=== PATIENT | male | born 2000 | race Caucasian/White ===

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

== ENCOUNTER 2021-06-30 10:45 | Inpatient (IN) | payer MEDICAID, SELFPAY ==
[~2021-06-30] VITALS: Ht 182.9 cm; Wt 86.6 kg
[2021-06-30 11:27] VITALS: BP 141/75
--- NOTE | 2021-06-30 16:01 | NUR ---
PT AMBULATED TO BED 02
--- NOTE | 2021-06-30 16:05 | NUR ---
21 y/o Male RLQ Abdominal pain since yesterday. Pain is constant, cramping, sharp, and tender to touch. Denies N/V/D. PT states "I feel the pain in my appendix area" skin warm and dry. Allergies: NKA Med hx: none
[2021-06-30 16:10] LABS: BASOPHILS # (AUTO) 0.1 K/uL (0.00-0.22); BASOPHILS % (AUTO) 0.4 % (0.0-2.0); EOSINOPHILS % (AUTO) 0.1 % (0.0-4.0); HEMATOCRIT 46.8 % (36-52); HEMOGLOBIN 15.9 g/dL (12.0-18.0); LYMPHOCYTES # (AUTO) 1.8 K/uL (2.0-11.5); MEAN CORPUSCULAR HEMOGLOBIN 33 pg (27-31); MEAN CORPUSCULAR HGB CONC 34 g/dL (33-37); MEAN CORPUSCULAR VOLUME 96.8 fL (80-94); MONOCYTES # (AUTO) 1.3 K/uL (0.8-1.0); MONOCYTES % (AUTO) 10.6 % (1.7-9.3); NEUTROPHILS # (AUTO) 9.5 K/uL (1.8-7.7); NEUTROPHILS % (AUTO) 74.9 % (42.2-75.2); PLATELET COUNT (AUTO) 338 K/uL (140-450); RED BLOOD CELL COUNT(AUTO) 4.84 MIL/uL (4.20-6.10); WHITE BLOOD COUNT (AUTO) 12.7 K/uL (4.5-11.0)
[2021-06-30 16:25] LABS: APPEARANCE,URINE CLEAR (CLEAR); BILIRUBIN,URINE NEGATIVE (NEGATIVE); BLOOD, URINE NEGATIVE (NEGATIVE); LEUKOCYTE ESTERASE ,URINE NEGATIVE (NEGATIVE); NITRITE, URINE NEGATIVE (NEGATIVE); UGLUCOSE NEGATIVE (NEGATIVE)
[2021-06-30 16:30] LABS: ALBUMIN 4.3 g/dL (3.4-5.0); ANION GAP 11.2 (8-16); CARBON DIOXIDE 30.3 mmol/L (21-32); CREATININE 0.9 mg/dL (0.6-1.3); POTASSIUM 3.5 mmol/L (3.5-5.1); TOTAL BILIRUBIN 0.7 mg/dL (0.0-1.0)
--- NOTE | 2021-06-30 16:35 | NUR ---
PT TAKEN TO CT SCAN VIA W/C
[2021-06-30 16:51] LABS: COLOR,URINE YELLOW (YELLOW)
--- NOTE | 2021-06-30 17:03 | NUR ---
PT RETURNED FROM CT SCAN
[2021-06-30] MEDS ORDERED: metroNIDAZOLE 500 MG/NS PREMIX 100 ML IV ONE (17:20)
[2021-06-30] MEDS ORDERED: KETOROLAC 15 MG/ML VIAL IVP ONE (17:25)
[2021-06-30] MEDS ORDERED: cefTRIAXone 1,000 MG VIAL ONE (17:29)
[2021-06-30 18:18] LABS: PROTHROMBIN TIME 10.7 secs (10.8-13.4)
--- NOTE | 2021-06-30 19:20 | NUR ---
Recevied report from Brandon VALERA for continuity of care
--- NOTE | 2021-06-30 19:20 | NUR ---
Pt report given to SAI RN. Transfer of care at this time.
--- NOTE | 2021-06-30 20:05 | NUR ---
francia swabbed and collected. sent to lab received by rolo schmitz
[2021-06-30] MEDS ORDERED: MORPHINE SULFATE 2 MG/ML SYR IVP PRN (21:25)
--- NOTE | 2021-06-30 22:01 | NUR ---
Patient appears to be resting comfortably in bed. Vital Signs within normal limits. Respirations even and unlabored. Safety measures are in place, will continue to monitor patient.
[2021-06-30] MEDS: NACL 0.9% 1,000 ML IV SCH (22:09)
--- NOTE | 2021-06-30 23:54 | NUR ---
Patient will be admitted to care of Shruti MIX. Admited to Med-Surg. Will go to [id number]. Belongings list completed. Report to Ty VALERA.
--- NOTE | 2021-06-30 23:54 | NUR ---
called wesly for report-- asked to call back in 2mins.
--- NOTE | 2021-07-01 00:15 | NUR ---
PATIENT WAS RECEIVED FROM ER, ALERT AND ORIENTED X 4, GOOD HISTORIAN BUT PATIENT WAS YOUNG TO HAVE SEVERAL SYSYTEMIC PROBLEMS
--- NOTE | 2021-07-01 01:00 | NUR ---
ADMISSION WAS DONE AND FINISHED PATIENT WAS FEELING SLEEPY.
--- NOTE | 2021-07-01 02:00 | NUR ---
PATIENT WAS ASLEEP CALMLY
--- NOTE | 2021-07-01 03:00 | NUR ---
PATIENT WAS ASLEEP CALMLY
[2021-07-01 04:00] VITALS: BP 121/79
--- NOTE | 2021-07-01 04:00 | NUR ---
V/S WAS TAKEN WNL CHARTED.
[2021-07-01] MEDS: NACL 0.9% 1,000 ML IV SCH ×2 (06:41→17:19)
--- NOTE | 2021-07-01 07:35 | NUR ---
ALL REPORTS GIVEN TO INCOMING RN, TRANSFER OF CARE ENDORSED.
--- NOTE | 2021-07-01 07:37 | NUR ---
RECEIVED REPORT FROM VICE PRESIDENT QUALITY IMPROVEMENT RN. PATIENT RESTING IN BED. CALL LIGHT WITHIN REACH. ALL SAFETY MEASURES IN PLACE.
[2021-07-01] MEDS ORDERED: LIDOCAINE MPF 2% 100 MG/5 ML VIAL INJ ONE (07:58)
[2021-07-01] MEDS ORDERED: MEPERIDINE 25 MG/ML SYR ONE (07:59)
[2021-07-01] MEDS ORDERED: fentaNYL citrate 0.05 MG/ML VIAL ONE (07:59)
[2021-07-01 08:00] VITALS: BP 120/73
[2021-07-01] MEDS ORDERED: PROPOFOL 200 MG/20 ML VIAL IV ONE (08:02)
[2021-07-01] MEDS ORDERED: KETOROLAC 30 MG/ML VIAL ONE (08:02)
[2021-07-01] MEDS ORDERED: ROCURONIUM 50 MG/5 ML VIAL IV ONE (08:02)
[2021-07-01] MEDS ORDERED: SUCCINYLCHOLINE CHLORIDE 200 MG/10 ML VIAL IVP ONE (08:02)
[2021-07-01] MEDS ORDERED: METOCLOPRAMIDE 10 MG/2 ML INJ VIAL ONE (08:02)
[2021-07-01] MEDS ORDERED: GLYCOPYRROLATE 0.2 MG/ML VIAL ONE (08:02)
[2021-07-01] MEDS ORDERED: DEXAMETHASONE 4 MG/ML VIAL ONE (08:02)
[2021-07-01] MEDS ORDERED: NEOSTIGMINE 1:1000 10 MG/10 ML VIAL ONE (08:02)
[2021-07-01] MEDS ORDERED: ONDANSETRON 4 MG/2 ML VIAL ONE (08:03)
--- NOTE | 2021-07-01 08:27 | NUR ---
PATIENT HAS BEEN SCREENED AND CATEGORIZED LOW NUTRITION RISK. PATIENT WILL BE SEEN WITHIN 7 DAYS OF ADMISSION. 07/07/[address]
[2021-07-01] MEDS ORDERED: BUPIVACAINE-MPF/EPI 0.25% 30 ML VIAL INJ ONE (08:41)
[2021-07-01] MEDS ORDERED: ACETAMINOPHEN 325 MG TAB PO PRN (08:50)
[2021-07-01] MEDS ORDERED: LORazepam 2 MG/ML VIAL IM/IVP PRN (08:50)
[2021-07-01] MEDS ORDERED: MAG SULF 2000 MG/WATER PREMIX 50 ML IV PRN (08:50)
[2021-07-01] MEDS ORDERED: ZOLPIDEM 5 MG TAB PO PRN (08:50)
[2021-07-01] MEDS ORDERED: DOCUSATE SODIUM 100 MG GELCAP PO PRN (08:50)
[2021-07-01] MEDS ORDERED: ONDANSETRON 4 MG/2 ML VIAL IM/IVP PRN (08:50)
[2021-07-01] MEDS ORDERED: POTASSIUM CHLORIDE 10 MEQ TABER PO PRN (08:50)
--- NOTE | 2021-07-01 09:15 | NUR ---
DR. BURR AT PATIENT BEDSIDE DISCUSSING PROCEDURE. PATIENT VERBALIZED UNDERSTANDING. CONSENT SIGNED BY PATIENT.
--- NOTE | 2021-07-01 09:25 | NUR ---
OR NURSES ON FLOOR TO COMPLAINT SUPERVISOR PATIENT FOR PROCEDURE. PATIENT IS STABLE.
[2021-07-01 09:36] LABS: BASOPHILS % (AUTO) 0.3 % (0.0-2.0); EOSINOPHILS % (AUTO) 0.3 % (0.0-4.0); HEMATOCRIT 46.1 % (36-52); HEMOGLOBIN 15.8 g/dL (12.0-18.0); LYMPHOCYTES # (AUTO) 1.7 K/uL (2.0-11.5); LYMPHOCYTES % (AUTO) 13.7 % (20.5-51.1); MEAN CORPUSCULAR HEMOGLOBIN 33 pg (27-31); MEAN CORPUSCULAR HGB CONC 34 g/dL (33-37); MEAN CORPUSCULAR VOLUME 95.9 fL (80-94); MONOCYTES # (AUTO) 1.5 K/uL (0.8-1.0); MONOCYTES % (AUTO) 12.1 % (1.7-9.3); NEUTROPHILS # (AUTO) 9.2 K/uL (1.8-7.7); NEUTROPHILS % (AUTO) 73.6 % (42.2-75.2); PLATELET COUNT (AUTO) 267 K/uL (140-450); RED BLOOD CELL COUNT(AUTO) 4.81 MIL/uL (4.20-6.10); RED CELL DISTRIBUTION WIDTH 12.8 % (11.6-13.7); WHITE BLOOD COUNT (AUTO) 12.5 K/uL (4.5-11.0)
[2021-07-01] MEDS ORDERED: SEVOFLURANE 250 ML BTL INH ONE (09:38)
[2021-07-01 09:55] LABS: ANION GAP 14.1 (8-16); CARBON DIOXIDE 27.3 mmol/L (21-32); CREATININE 0.8 mg/dL (0.6-1.3); POTASSIUM 3.4 mmol/L (3.5-5.1)
[2021-07-01 10:10] LABS: CHOL/HDL RATIO 2.3 (1-4.5); MAGNESIUM 2.1 mg/dL (1.8-2.4); PHOSPHORUS 3.1 mg/dL (2.5-4.9); THYROID STIMULATING HORMONE 2.14 uIU/mL (0.34-3.74)
[2021-07-01] MEDS ORDERED: LACTATED RINGERS 1,000 ML IV SCH (10:35)
[2021-07-01] MEDS ORDERED: fentaNYL citrate 0.05 MG/ML VIAL IVP PRN (10:35)
[2021-07-01] MEDS ORDERED: diphenhydrAMINE 50 MG/ML VIAL IVP PRN (10:35)
[2021-07-01] MEDS ORDERED: MEPERIDINE 25 MG/ML SYR IVP PRN (10:35)
[2021-07-01] MEDS ORDERED: ONDANSETRON 4 MG/2 ML VIAL IVP PRN (10:35)
[2021-07-01] MEDS ORDERED: HYDROcodone/APAP 5/325 MG 1 TAB TAB PO PRN (10:50)
--- NOTE | 2021-07-01 11:35 | NUR ---
PATIENT HAS RETURNED BACK FROM OR. PATIENT IS STABLE. CALL LIGHT WITHIN REACH. ALL SAFETY MEASURES IN PLACE. WILL CONTINUE TO MONITOR.
[2021-07-01] MEDS: MORPHINE SULFATE 4 MG/ML SYR IVP PRN ×2 (11:53→21:34)
--- NOTE | 2021-07-01 11:55 | NUR ---
PATIENT COMPLAINED OF 9/10 PAIN. ADMINISTERED PRN PAIN MEDICATION. WILL CONTINUE TO MONITOR. ALL SAFETY MEASURES IN PLACE.
--- NOTE | 2021-07-01 13:30 | NUR ---
CHECKED ON PATIENT. PATIENT RESTING. NO S/S OF DISTRESS. CALL LIGHT WITHIN REACH. ALL SAFETY MEASURES IN PLACE.
[2021-07-01 14:26] LABS: BARBITURATE, URINE NEGATIVE ng/ml (NEG <=200); BENZODIAZEPINE, URINE NEGATIVE ng/mL (NEG <=200); CANNABINOID, URINE POSITIVE ng/mL (NEG <=50); COCAINE, URINE NEGATIVE ng/mL (NEG <=300); OPIATE, URINE NEGATIVE ng/mL (NEG <=2000); PHENCYCLIDINE SCREEN,URINE NEGATIVE ng/mL (NEG <=25)
--- NOTE | 2021-07-01 15:58 | NUR ---
PT COMPLAINS OF PAIN ON THE SURGICAL AREA ABDOMEN CHECK VITAL SIGNS BP 125/75 DE 96 PT TOLERATED WELL
[2021-07-01 16:00] VITALS: BP 125/75
--- NOTE | 2021-07-01 18:15 | NUR ---
CHECKED ON PATIENT. PATIENT IS RESTING IN BED. CALL LIGHT WITHIN REACH. ALL SAFETY MEASURES IN PLACE.
--- NOTE | 2021-07-01 19:15 | NUR ---
ENDORSED PATIENT TO CONFIGURATION MANAGER RN FOR CONTINUITY OF CARE. PATIENT STABLE. ALL SAFETY MEASURES IN PLACE.
--- NOTE | 2021-07-01 19:20 | NUR ---
RECEIVED BEDSIDE REPORT FROM DAY SHIFT NURSE. PATIENT IS AWAKE, ALERT, AND COOPERATIVE. RESPIRATION EVEN UNLABORED ON ROOM AIR. NO DISTRESS NOTED. SKIN IS WARM AND DRY. S/P LAP APPY TODAY WITH 4 SURGICAL INCISION WITH BANDAGE. DENIES PAIN. PLAN OF CARE WAS DISCUSSED. ALL SAFETY MEASURES IN PLACE. BED IS AT LOW POSITION. CALL LIGHT WITHIN REACH. WILL CONTINUE TO MONITOR.
[2021-07-01 20:00] VITALS: BP 132/73
--- NOTE | 2021-07-01 20:30 | NUR ---
INITIAL ASSESSMENT DONE. VITALS WERE TAKEN.
--- NOTE | 2021-07-01 21:34 | NUR ---
PATIENT COMPLAINED OF INCISIONAL PAIN FROM THE ABD 8/10. PRN PAIN MEDS GIVEN PER ORDER. WILL CONTINUE TO MONITOR
--- NOTE | 2021-07-02 00:44 | NUR ---
MADE ROUNDS PATIENT TALKING ON THE PHONE, NO DISTRESS NOTED. WILL CONTINUE TO MONITOR
--- NOTE | 2021-07-02 02:29 | NUR ---
MADE ROUNDS, PATIENT STILL AWAKE, WATCHING TV WITH NO DISTRESS NOTED
[2021-07-02] MEDS: NACL 0.9% 1,000 ML IV SCH (03:52)
--- NOTE | 2021-07-02 03:53 | NUR ---
MANUALLY SCANNED PATIENT IV FLUID NS, SCANNER IS NOT WORKING, VERIFIED WITH ANOTHER NURSE THE IV FLUID ADMINISTRATION.
[2021-07-02 04:00] VITALS: BP 141/84
--- NOTE | 2021-07-02 05:10 | NUR ---
VITALS WERE TAKEN.
[2021-07-02 05:53] LABS: BASOPHILS % (AUTO) 0.3 % (0.0-2.0); EOSINOPHILS % (AUTO) 0.3 % (0.0-4.0); HEMATOCRIT 38.7 % (36-52); HEMOGLOBIN 13.4 g/dL (12.0-18.0); LYMPHOCYTES # (AUTO) 2.5 K/uL (2.0-11.5); LYMPHOCYTES % (AUTO) 21.1 % (20.5-51.1); MEAN CORPUSCULAR HEMOGLOBIN 33 pg (27-31); MEAN CORPUSCULAR HGB CONC 35 g/dL (33-37); MEAN CORPUSCULAR VOLUME 95.8 fL (80-94); MONOCYTES # (AUTO) 1.2 K/uL (0.8-1.0); MONOCYTES % (AUTO) 9.9 % (1.7-9.3); NEUTROPHILS % (AUTO) 68.4 % (42.2-75.2); PLATELET COUNT (AUTO) 256 K/uL (140-450); RED BLOOD CELL COUNT(AUTO) 4.05 MIL/uL (4.20-6.10); RED CELL DISTRIBUTION WIDTH 13.2 % (11.6-13.7); WHITE BLOOD COUNT (AUTO) 11.7 K/uL (4.5-11.0)
--- NOTE | 2021-07-02 06:19 | NUR ---
PATIENT IV INFILTRATED, INSERTED NEW ONE AT RIGHT FOREARM 24G. PATIENT TOLERATED IT WELL
[2021-07-02 06:21] LABS: ANION GAP 11.8 (8-16); CARBON DIOXIDE 27.8 mmol/L (21-32); CREATININE 0.7 mg/dL (0.6-1.3); POTASSIUM 3.6 mmol/L (3.5-5.1)
[2021-07-02 06:22] LABS: MAGNESIUM 1.8 mg/dL (1.8-2.4); PHOSPHORUS 3.7 mg/dL (2.5-4.9)
--- NOTE | 2021-07-02 07:14 | NUR ---
ENDORSED PATIENT TO DAY SHIFT NURSE FOR CONTINUITY OF CARE
--- NOTE | 2021-07-02 07:18 | NUR ---
RECEIVED REPORT FROM NIGHT NURSE PATIENT IS AAOX4, ON ROOM AIR, AMBULATORY, SKIN NON INTACT WITH S/P LAP APPY ON 07/01/21 DR BURR 1ITH 3 INCISIONS ON THE LEFT SIDE, IV INTACT ON THE RIGHT FA RUNNING NS AT 100 MLS/HR. SAFETY MEASURES IN PLACE AND CALL LIGHT WITHIN REACH. WILL CONTINUE TO MONITOR.
[2021-07-02 08:00] VITALS: BP 121/78
[2021-07-02 08:07] LABS: T4 (THYROXINE) 7.1 ug/dL (4.5-12.0)
--- NOTE | 2021-07-02 10:00 | NUR ---
ADMINISTERED SCHEDULED MEDICATION CEFTRIAXONE 1000 MG AT 100 MLS/HR INFUSING WELL.
[2021-07-02] MEDS ORDERED: CEPH250C16 PO (10:15)
[2021-07-02] MEDS ORDERED: IBUP-1842 PO (10:15)
[2021-07-02] MEDS: MORPHINE SULFATE 4 MG/ML SYR IVP PRN (12:19)
--- NOTE | 2021-07-02 12:19 | NUR ---
PT COMPLAINS OF INCISIONAL PAIN ON THE ABDOMEN 07/01 CHECK VITAL SIGNS BP 130/80 MA 80. PT RESTING.
--- NOTE | 2021-07-02 13:25 | NUR ---
DISCHARGED INSTRUCTIONS GIVEN TO PATIENT AT BEDSIDE AND ENCOURAGED TO CONTINUE MEDICATION AND INSTRUCTED TO AVOID HEAVY LIFTING AND TO FOLLOW UP WITH PCP AND DR BURR, SET UP AN APPOINTMENT WITH THE SURGEON. INSTRUCTED TO SEEK MEDICAL HELP IN CASE OF EMERGENCIES. REMOVED IV INTACT AND COMPLETE, REMOVED ID BANDS, PATIENT CHANGED TO HIS OWN CLOTHES AND TOOK ALL HIS BELONGINGS, ESCORTED TO [id number], PT IS GOING HOME ACCOMPANIED BY PARTNER. PT IS STABLE.
--- NOTE | 2021-07-05 19:40 | NUR ---
LATE ENTRY- ROCEPHIN IVPB DISCONTINUED AT 1820
== END 2021-07-02 13:25 | disposition home or self-care (01) | DRG 710 ==
LOC: MED 10:45 → MTU 21:35 → MMU 07-01 00:03
PROC: 0DTJ4ZZ Resection of Appendix, Percutaneous Endoscopic Approach (ICD-10-PCS; principal; 2021-07-01 08:45)
DX: A41.9 Sepsis, unspecified organism (principal); K35.80 Unspecified acute appendicitis; Z20.822 Contact with and (suspected) exposure to COVID-19; E86.0 Dehydration; K64.4 Residual hemorrhoidal skin tags; E78.5 Hyperlipidemia, unspecified; E87.6 Hypokalemia; Z83.3 Family history of diabetes mellitus; Z90.5 Acquired absence of kidney
CPT/HCPCS: 36415; 80048; 80053; 80305; 81003; 82150; 82374; 83036; 83605; 83690; 83735; 83880; 84100; 84134; 84436; 84443; 85025; 85610; 85730; 86886; 86900; 86901; 87040; 87081; 88304; 96365; 96367; 96375; 99285; J0330; J0696; J1100; J1885; J2001; J2175; J2270; J2405; J2704; J2710; J2765; J3010; J3490; J7030; J7060; J7120; Q9967

== ENCOUNTER 2021-10-09 11:59 | Emergency (ER) | payer MEDICAID, SELFPAY ==
[~2021-10-09] VITALS: Ht 182.9 cm; Wt 87.5 kg
[~2021-10-09 11:59] MED LIST: CEPH250C16 PO; IBUP-1842 PO
[2021-10-09 12:06] VITALS: BP 141/63
[2021-10-09] MEDS ORDERED: FLUORESCEIN OPTH STRIP 1 MG OP ONE (12:35)
[2021-10-09] MEDS ORDERED: POLY10SO OP (13:03)
[2021-10-09 13:28] VITALS: BP 141/63
--- NOTE | 2021-10-09 13:29 | NUR ---
Patient discharged with v/s stable. Written and verbal after care instructions given BLEPHARITIS and explained. Patient alert, oriented and verbalized understanding of instructions. Ambulatory with steady gait. All questions addressed prior to discharge. ID band removed. Patient advised to follow up with PMD. Rx of POLYTRIM EYE DROPS given. Patient educated on indication of medication including possible reaction and side effects. Opportunity to ask questions provided and answered.
== END 2021-10-09 13:29 | disposition home or self-care (01) ==
LOC: MED 11:59
DX: H01.001 Unspecified blepharitis right upper eyelid (principal); Z79.899 Other long term (current) drug therapy
CPT/HCPCS: 99283

== ENCOUNTER 2021-12-03 17:20 | Emergency (ER) | payer MEDICAID ==
[~2021-12-03] VITALS: Ht 182.9 cm; Wt 89.8 kg
[~2021-12-03 17:20] MED LIST changes: +POLY10SO OP
[2021-12-03 17:56] VITALS: BP 122/46
[2021-12-03 18:52] VITALS: BP 122/46
--- NOTE | 2021-12-03 18:52 | NUR ---
PATIENT D/C BY KESHIA MONCADA
--- NOTE | 2021-12-03 18:52 | NUR ---
Patient discharged with v/s stable. Written and verbal after care instructions given and explained. Patient verbalized understanding. Ambulatory with steady gait. All questions addressed prior to discharge. Advised to follow up with PMD.
== END 2021-12-03 18:52 | disposition home or self-care (01) ==
LOC: MED 17:20
DX: S01.01XD Laceration without foreign body of scalp, subsequent encounter (principal); Z48.00 Encounter for change or removal of nonsurgical wound dressing; X58.XXXD Exposure to other specified factors, subsequent encounter
CPT/HCPCS: 99281

== ENCOUNTER 2023-10-01 10:57 | Emergency (ER) | payer MEDICAID ==
[~2023-10-01] VITALS: Ht 175.3 cm; Wt 75.7 kg
[2023-10-01 11:11] VITALS: BP 128/70; PULSE 74; RESP 17; TEMP 97.9; O2SAT 98
[2023-10-01] MEDS ORDERED: KEN.1O TP (11:48)
[2023-10-01 11:54] VITALS: BP 122/70; PULSE 74; RESP 17; TEMP 97.9; O2SAT 99
== END 2023-10-01 11:54 | disposition home or self-care (01) ==
LOC: MED 10:57
DX: L30.9 Dermatitis, unspecified (principal); Z79.899 Other long term (current) drug therapy
CPT/HCPCS: 99283